=== PATIENT | male | born 1955 | race African-American/Black ===

== ENCOUNTER 2022-03-02 14:15 | Outpatient (CLI) | payer MEDICARE, MEDICAID, SELFPAY | END 2022-03-02 14:16 | disposition home or self-care (01) | LOC: ANHAUDASC 14:19 | PROVIDERS: Visit Provider Otolaryngology | DX: H90.42 Sensorineural hearing loss, unilateral, left ear, with unrestricted hearing on the contralateral side (principal) | CPT/HCPCS: 92557; 92567 ==